=== PATIENT | female | born 1975 | race Caucasian/White ===

== ENCOUNTER 2016-06-17 09:21 | Observation (INO) | payer BC ==
[2016-06-17] VITALS (8 sets, daily range): BP systolic 107–138; BP diastolic 67–89
[~2016-06-17] VITALS: Ht 157.5 cm; Wt 81.2 kg
[~2016-06-17 09:21] MED LIST: BUPIVACAINE-EPI 0.25%-1:200000 MPF 30 ML VIAL. ONE; ESTROGENS, CONJ VAGINAL CREAM 30GM TUBE. ONE; HYDROmorphone 2 MG/ML VIAL IV PRN; IV RINGERS,LACTATED 1000ML 1,000 ML IV SCH; LIDOCAINE 1% 1 ML SYRINGE. ID PRN; LIDOCAINE 1%/EPI 1:100,000 20 ML VIAL. ONE; METHYLENE BLUE 1% 1 ML VIAL. ONE; MORPHINE SULFATE 2 MG/ML DISP.SYRIN. IV PRN; ONDANSETRON PF 4 MG/2 ML VIAL. IV PRN; PROCHLORPERAZINE 10 MG/2 ML VIAL. IV PRN; SURGICEL HEMOSTAT 4X8 EACH. ONE; fentaNYL PF VIAL 100 MCG/2 ML VIAL IV PRN
[2016-06-17 09:55] LABS: NEG OBC UR NEG; POS OBC UR POS
[2016-06-17 10:36] LABS: BASO # 0.1 x10^3/uL (0.0-0.2); BASO % 1 % (0-3); EOS % 1 % (0-3); HEMATOCRIT 39.9 % (36.0-47.0); HEMOGLOBIN 13.7 g/dL (12.0-15.5); LYMPH # 1.9 x10^3/uL (1.0-4.8); LYMPH % 20 % (24-48); MEAN CORPUSCULAR HEMOGLOBIN 31 pg (25-35); MEAN CORPUSCULAR HGB CONC 34 g/dL (31-37); MEAN CORPUSCULAR VOLUME 89 fL (79-100); MONO % 6 % (0-9); NEUT % 73 % (31-73); PLATELET COUNT 303 x10^3/uL (140-400); RED BLOOD COUNT 4.49 x10^6/uL (3.50-5.40); RED CELL DISTRIBUTION WIDTH 12.9 % (11.5-14.5); WHITE BLOOD COUNT 9.5 x10^3/uL (4.0-11.0)
[2016-06-17] MEDS ORDERED: PROPOFOL 20 ML IV ONE (11:15)
[2016-06-17] MEDS ORDERED: DEXAMETHASONE SOD PHOS 20 MG/5 ML VIAL. ONE (11:15)
[2016-06-17] MEDS ORDERED: LIDOCAINE 2% 100 MG/5 ML SYRINGE. ONE (11:15)
[2016-06-17] MEDS ORDERED: ONDANSETRON PF 4 MG/2 ML VIAL. ONE (11:15)
[2016-06-17] MEDS ORDERED: MIDAZOLAM HCL/PF 2 MG/2 ML VIAL. ONE (11:23)
[2016-06-17] MEDS ORDERED: fentaNYL PF VIAL 250 MCG/5 ML VIAL ONE (11:23)
[2016-06-17] MEDS ORDERED: NEOSTIGMINE METHYLSULFATE 5 MG/5 ML SYRINGE. ONE (12:34)
[2016-06-17] MEDS ORDERED: GLYCOPYRROLATE 1 MG/5 ML VIAL. ONE (12:34)
[2016-06-17] MEDS ORDERED: SEVOFLURANE 61 TO 120 MINUTES. IH ONE (12:34)
--- NOTE | 2016-06-17 12:47 | PDOC ---
BRIEF OPERATIVE NOTE Pre-Op Diagnosis 1. Menorrhagia 2. 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 Joey Sawyer Anesthesia Type: General Blood Loss 25 ml Specimens Obtained uterus,cervix, arcadio. fallopian tubes and ovaries Findings enlarged, fibroid uterus; nml fallopian tubes and ovaries arcadio. Complications none Additional Remarks pt. AVIVA Noyola Jr, MD June 17, 2016 12:47
[2016-06-17] MEDS ORDERED: DEXTROSE 50% 25 GM / 50ML DISP.SYRIN. IV PRN (13:00)
[2016-06-17] MEDS ORDERED: ZOLPIDEM 5 MG TABLET. PO PRN (13:00)
[2016-06-17] MEDS ORDERED: CALCIUM CARBONATE 500 MG TAB.CHEW PO PRN (13:00)
[2016-06-17] MEDS ORDERED: diphenhydrAMINE 50 MG/ML VIAL IV PRN (13:00)
[2016-06-17] MEDS ORDERED: KETOROLAC TROMETHAMINE 30 MG/ML INJ. IV PRN (13:00)
[2016-06-17] MEDS ORDERED: SIMETHICONE 80 MG TAB.CHEW PO PRN (13:00)
[2016-06-17] MEDS ORDERED: diphenhydrAMINE HCL 25 MG CAPSULE PO PRN (13:00)
[2016-06-17] MEDS ORDERED: ONDANSETRON PF 4 MG/2 ML VIAL. IV PRN (13:00)
[2016-06-17] MEDS ORDERED: PROCHLORPERAZINE 10 MG/2 ML VIAL. IV PRN (13:00)
[2016-06-17] MEDS ORDERED: 0.9 % SODIUM CHLORIDE 10 ML DISP.SYRIN. IV PRN (13:00)
[2016-06-17] MEDS: fentaNYL PF VIAL 100 MCG/2 ML VIAL IV PRN ×2 (13:04→13:39)
--- NOTE | 2016-06-17 16:01 | OP ---
DATE OF SURGERY: PREOPERATIVE DIAGNOSES: 1. Menorrhagia. 2. Genetic predisposition to breast and ovarian cancer. POSTOPERATIVE DIAGNOSES: 1. Menorrhagia. 2. Genetic predisposition to breast and ovarian cancer. 3. Fibroids. PROCEDURE: TLH-BSO via da Nick robot. SURGEON: Aviva Cook MD SKIDWAY WORKER: Digna. ANESTHESIA: GETA. ESTIMATED BLOOD LOSS: 25 mL. COMPLICATIONS: None. FINDINGS: Enlarged fibroid uterus, normal fallopian tubes and ovaries bilaterally. SUMMARY: A 40-year-old female with history of menorrhagia, she also had genetic ____ that indicated predisposition to breast and ovarian cancer. The patient was counseled on TLH-BSO via da Nick robot, risks, benefits and expectations and voiced a clear understanding to proceed. DESCRIPTION OF PROCEDURE: The patient was taken to surgery suite and placed in dorsal lithotomy position where she was prepped with Betadine solution for vaginal prep and ChloraPrep for abdominal prep. After adequate anesthesia, bivalve speculum was placed vaginally. Anterior lip of the cervix grasped with a single tooth tenaculum. The CHARLIE uterine manipulator was then placed. The single tooth tenaculum and bivalve speculum removed. Attention was now placed on abdomen. Small transverse skin incision was made just below the umbilicus with a scalpel. Veress needle was then placed through the infraumbilical incision site. The abdomen was allowed to insufflate up to 1-1/2 liters of CO2 gas. The Veress needle was then removed. An 8 mm camera port was placed. The camera was then positioned. The uterus was enlarged with fibroids. The fallopian tubes and ovaries appeared normal bilaterally. Incisions were made in the left and right lower quadrant with a scalpel, in which 8 mm trocars were placed. An accessory port was placed in the left upper quadrant, at which a 5 mm port with trocar was placed. The da Nick robot was then docked in normal fashion. I then proceeded to the console. With the aid of the bipolar and vessel sealer, the right round ligament was coagulated and dissected. The right infundibulopelvic ligament was coagulated and dissected. The right broad ligament and right uterine artery was coagulated and dissected. Same process took place with left adnexa. Bladder flap was created with the vessel sealer and blunt dissection ____. Spatula was utilized to make the colpotomy at the level of the cervical ring. The cervix, uterus, bilateral fallopian tubes and ovaries were removed in their entirety. The vaginal cuff was reapproximated using a V-Loc suture. Suction irrigation was utilized to verify good hemostasis. The ureters were visualized and functioning properly. Small amount of normal saline was left in the posterior cul-de-sac. The trocars were then removed under direct visualization. The abdomen was allowed to deflate as much as possible along with mechanical manipulation. The 4 skin incisions were reapproximated using 4-0 Vicryl suture in a subcuticular manner. A 0.25% Marcaine with epinephrine was injected at each incision site. Moist vaginal packing was placed vaginally. The patient tolerated the procedure well and was taken to recovery room in stable condition. Sponge and needle counts correct x 3. AVIVA COOK MD DR: DONNY/roland JOB#: [id number] / [id number]
[2016-06-17] MEDS: GABAPENTIN 300 MG CAPSULE. PO SCH ×2 (16:15→22:21)
[2016-06-17] MEDS: oxyCODONE/APAP 5/325 1 TAB TABLET PO PRN ×2 (16:16→22:21)
[2016-06-18 05:40] VITALS: BP 113/75
[2016-06-18] MEDS: GABAPENTIN 300 MG CAPSULE. PO SCH (05:42)
[2016-06-18 07:45] LABS: BASO % 0 % (0-3); EOS % 0 % (0-3); HEMATOCRIT 37.6 % (36.0-47.0); HEMOGLOBIN 12.3 g/dL (12.0-15.5); LYMPH # 1.9 x10^3/uL (1.0-4.8); LYMPH % 13 % (24-48); MEAN CORPUSCULAR HEMOGLOBIN 30 pg (25-35); MEAN CORPUSCULAR HGB CONC 33 g/dL (31-37); MEAN CORPUSCULAR VOLUME 90 fL (79-100); MONO % 6 % (0-9); NEUT % 81 % (31-73); PLATELET COUNT 281 x10^3/uL (140-400); RED BLOOD COUNT 4.17 x10^6/uL (3.50-5.40); RED CELL DISTRIBUTION WIDTH 12.9 % (11.5-14.5); WHITE BLOOD COUNT 15.2 x10^3/uL (4.0-11.0)
[2016-06-18] MEDS: oxyCODONE/APAP 5/325 1 TAB TABLET PO PRN ×2 (08:30→11:54)
[2016-06-18 13:00] VITALS: BP 113/64
--- NOTE | 2016-06-18 13:19 | PDOC ---
SURGICAL PROGRESS NOTE Subjective PT. feeling well. Pain controlled. Pt. ambulating, voiding and tolerating regular diet. Vital Signs Vital Signs Date Time Temp Pulse Resp B/P (MAP) Pulse Ox O2 Delivery O2 Flow Rate FiO2 06/18/16 05:40 98.1 75 18 113/75 (88) 96 Room Air 98.1 06/17/16 15:00 2.0 I&O Intake and Output 06/18/16 06:59 Intake Total 3150 ml Output Total 1550 ml Balance 1600 ml Intake Oral 1500 ml IV Total 1650 ml Output Urine Total 1500 ml Estimated Blood Loss 50 ml # Voids 51 PATIENT HAS A COLLADO: No General: Alert, Oriented X3, Cooperative HEENT: Atraumatic Lungs: Clear to auscultation Heart: Regular rate Abdomen: Normal bowel sounds, Soft, No tenderness, No masses Psych/Mental Status: Mental status NL Labs Laboratory Tests Test 06/17/16 09:50 06/17/16 10:00 06/18/16 07:35 Urine Test Negative (NEG) White Blood Count 9.5 x10^3/uL (4.0-11.0) 15.2 x10^3/uL (4.0-11.0) Red Blood Count 4.49 x10^6/uL (3.50-5.40) 4.17 x10^6/uL (3.50-5.40) Hemoglobin 13.7 g/dL (12.0-15.5) 12.3 g/dL (12.0-15.5) Hematocrit 39.9 % (36.0-47.0) 37.6 % (36.0-47.0) Mean Corpuscular Volume 89 fL (79-100) 90 fL (79-100) Mean Corpuscular Hemoglobin 31 pg (25-35) 30 pg (25-35) Mean Corpuscular Hemoglobin Concent 34 g/dL (31-37) 33 g/dL (31-37) Red Cell Distribution Width 12.9 % (11.5-14.5) 12.9 % (11.5-14.5) Platelet Count 303 x10^3/uL (140-400) 281 x10^3/uL (140-400) Neutrophils (%) (Auto) 73 % (31-73) 81 % (31-73) Lymphocytes (%) (Auto) 20 % (24-48) 13 % (24-48) Monocytes (%) (Auto) 6 % (0-9) 6 % (0-9) Eosinophils (%) (Auto) 1 % (0-3) 0 % (0-3) Basophils (%) (Auto) 1 % (0-3) 0 % (0-3) Neutrophils # (Auto) 7.0 x10^3uL (1.8-7.7) 12.3 x10^3uL (1.8-7.7) Lymphocytes # (Auto) 1.9 x10^3/uL (1.0-4.8) 1.9 x10^3/uL (1.0-4.8) Monocytes # (Auto) 0.5 x10^3/uL (0.0-1.1) 0.9 x10^3/uL (0.0-1.1) Eosinophils # (Auto) 0.1 x10^3/uL (0.0-0.7) 0.0 x10^3/uL (0.0-0.7) Basophils # (Auto) 0.1 x10^3/uL (0.0-0.2) 0.0 x10^3/uL (0.0-0.2) Laboratory Tests Test 06/18/16 07:35 White Blood Count 15.2 x10^3/uL (4.0-11.0) Red Blood Count 4.17 x10^6/uL (3.50-5.40) Hemoglobin 12.3 g/dL (12.0-15.5) Hematocrit 37.6 % (36.0-47.0) Mean Corpuscular Volume 90 fL (79-100) Mean Corpuscular Hemoglobin 30 pg (25-35) Mean Corpuscular Hemoglobin Concent 33 g/dL (31-37) Red Cell Distribution Width 12.9 % (11.5-14.5) Platelet Count 281 x10^3/uL (140-400) Neutrophils (%) (Auto) 81 % (31-73) Lymphocytes (%) (Auto) 13 % (24-48) Monocytes (%) (Auto) 6 % (0-9) Eosinophils (%) (Auto) 0 % (0-3) Basophils (%) (Auto) 0 % (0-3) Neutrophils # (Auto) 12.3 x10^3uL (1.8-7.7) Lymphocytes # (Auto) 1.9 x10^3/uL (1.0-4.8) Monocytes # (Auto) 0.9 x10^3/uL (0.0-1.1) Eosinophils # (Auto) 0.0 x10^3/uL (0.0-0.7) Basophils # (Auto) 0.0 x10^3/uL (0.0-0.2) Assessment/Plan A: POD#1 s/p TLH & BSO P: D/c home. Problems: AVIVA FLOWER Jr, MD June 18, 2016 13:19
--- NOTE | 2016-06-18 13:20 | DISCH ---
DISCHARGE INSTRUCTIONS Condition on Discharge Condition on Discharge: Stable Activity After Discharge Activity Instructions for Disc: Activity as tolerated Lifting Instructions after Dis: No heavy lifting Driving Instructions after Dis: No driving for 2 weeks Diet after Discharge Diet after Discharge: Regular Contacting the DRNevin after DC Call your doctor for: Concerns you may have Follow-Up Follow up with: Dr. Cook in 2 weeks. AVIVA COOK Jr, MD June 18, 2016 13:20
[2016-06-18] MEDS ORDERED: IBUP-1060 PO (13:21)
[2016-06-18] MEDS ORDERED: OXYC-323 PO (13:21)
[2016-06-18] MEDS ORDERED: DOCU-27 PO (13:21)
--- NOTE | 2016-06-21 15:56 | PATHOLOGY ---
PATHOLOGY REPORT * * * * * * * * FINAL DIAGNOSIS: Uterus, bilateral ovaries and fallopian tubes, hysterectomy and bilateral salpingo-oophorectomy: - Cervix with mild chronic inflammation, squamous metaplasia, and nabothian cysts. - Secretory phase endometrium. - Myometrium with leiomyomata, up to 1.0 cm. - Serosal surface with no pathologic diagnosis. - Right and left ovaries with simple cysts. - Right and left fallopian tubes with no pathologic diagnosis. (TUNDE:; d/t: 06/21/16) REPORT ELECTRONICALLY SIGNED BY: Augie Garay M.D. DATE/TIME: 06/21/2016 15:55 * * * * * * * * GROSS PATHOLOGY: The specimen is received in formalin labeled "Angela Emanuel, uterus, cervix, bilateral tubes and ovaries". Received is a 179 g, 9.5 x 6.9 x 5.7 cm uterus with attached cervix and attached adnexa, weighing 8 and 23 g, left and right, respectively. The uterine serosa is pink-mcbride in appearance with a moderate amount of adhesions on the posterior aspect. The 1.7 cm cervical os is surrounded by pink-mcbride, smooth ectocervical mucosa. The uterus is oriented using the peritoneal reflection and the anterior paracervical margin is inked black. The uterus is opened laterally to reveal a pale varma, slightly corrugated endocervical canal measuring 2.5 cm in length. The endometrial cavity is triangular measuring 4.9 cm in length by 2.8 cm in width. The endometrium is pale varma, granular in appearance and measures 0.1 cm in thickness. Serial sectioning reveals a varma-pink, trabeculated myometrium measuring up to 2.5 cm in thickness containing multiple intramural fibroids ranging in size from 0.3 to 1.0 cm. The left adnexa consists of a fimbriated fallopian tube measuring 5.5 cm in length by up to up to 0.6 cm in diameter attached to a 3.6 x 2.1 x 1.7 cm ovary. Sectioning through the fallopian tube reveals a pinpoint lumen and the fallopian tube appears otherwise grossly unremarkable. Sectioning through the ovary reveals multiple cystic structures ranging in size from 0.5 to 0.8 cm filled with blood-tinged fluid. The remaining cut surfaces display pale varma, normal ovarian stroma. The right adnexa consists of a fimbriated fallopian tube measuring 6.4 cm in length by up to up to 0.8 cm in diameter attached to a 4.2 x 3.7 x 3.2 cm cystic ovary. Sectioning through the fallopian tube reveals a pinpoint to patent lumen and the fallopian tube appears grossly unremarkable. Sectioning through the ovary reveals a large unilocular cystic structure measuring 3.1 cm filled with blood-tinged fluid. The cyst thomas are smooth in appearance with no gross evidence of papillary excrescences. A minimal amount of pale varma normal ovarian stroma is grossly identified. The specimen is submitted representatively as follows: A1 12:00 cervix A2 6:00 cervix A3 anterior endomyometrium A4 posterior endomyometrium A5 sales representative publications sections of fibroids A6 left adnexa A7-A8 right adnexa. (CAA; 06/18/2016) INITIAL CPT CODE(S): A; 20905 Professional services performed by [facility] [place] [address] Technical services performed by [facility] at [address] [place] [address], [facility] [address] [address]. SPECIMEN(S) RECEIVED: A.Uterus, cervix, bilateral fallopian tubes and ovaries CLINICAL HISTORY: Menometrorrhagia PATIENT: ANGELA EMANUEL /AGE: 708/31/1975 (Age: 40) PATIENT #: [id number] ALT CASE #: SPECIMEN COLLECTION DATE: 06/17/2016 SPECIMEN RECEIVED DATE: 06/17/2016 [facility] - [address] [place] [address] - PHONE: [phone] * * * END OF REPORT * * *
== END 2016-06-18 14:20 | disposition home or self-care (01) ==
LOC: SURG 09:21 → 3 NORTH 12:55
PROVIDERS: ADMIT Obstetrics & Gynecology; ATTEND Obstetrics & Gynecology
DX: N92.0 Excessive and frequent menstruation with regular cycle (principal); D25.9 Leiomyoma of uterus, unspecified; Z15.01 Genetic susceptibility to malignant neoplasm of breast
CPT/HCPCS: 36415; 58571; 81025; 85027; 86850; 86900; 86901; A4215; G0378; G0379; J0690; J0780; J1100; J1885; J2250; J2405; J2704; J2710; J3010; J3490; J7030; S2900; 88307; Q9968